=== PATIENT | female | born 1945 | race African-American/Black ===

== ENCOUNTER → 2016-09-28 | Outpatient (CLI) | payer OTHER ==
[~2016-09-28] MED LIST: (NONE)500 MCG PO; ASCORBIC ACID500 M2 PO; ASPIRIN81 M1 PO; BENICAR PO; CALTRATE 600+D PO; COD LIVER OIL1 CA1 PO; COVERA HS PO; GARLIC1000 MG PO; KCL PO; LIPITOR40 MG PO; LODINE400 M1 PO; QUINAPRIL-HCTZ1 TA1 PO; VERAPAMIL ER300 MG PO; VITAMIN D1000 UNI1 PO; VITAMIN E200 UNI1 PO; VYTORIN 10/20 T1 TAB PO
--- NOTE | ~2016-09-28 | MY11 ---
[facility] A Service of [facility] RADIOLOGY TEXT RESULTS PATIENT: ORA ARCHIBALD LOCATION: [facility] : 43 UNIT #: [id number] AGE: [address]: Marcelo Cruz MD SEX: F ORDER DR: [id number] [facility] [address] [place], [place] [address] [id number] O MR#: [id number] Acc #: [id number] NAME: ORA ARCHIBALD. : 1945 SEX: F STUDY DATE/TIME: 09/28/2016 11:21 UNIT: [facility] ROOM: STUDY DESCRIPTION: MY Mammogram Screening Dig Kenny Attending Physician: Marcelo Cruz M.D. Referring Physician: Marcelo Cruz M.D. Ordering Physician: Marcelo Cruz M.D. Primary Care Physician: Marcelo Cruz M.D. MEDICAL IMAGING REPORT This report is preliminary unless electronic signature is present EXAM Bilateral Digital Screening Mammogram with CAD INDICATION Breast cancer screening. 71-year-old asymptomatic female with a history of left breast cancer treated with lumpectomy in 2001. COMPARISON September 25, 2015; September 17, 2014; August 24, 2013; August 22, 2012; August 20, 2011; August 18, 2010 and August 14, 2009. FINDINGS There are scattered fibroglandular tissues. No suspicious findings are present. IMPRESSION No mammographic evidence of malignancy. Annual screening mammography and clinical breast exam are recommended. A result letter will be sent to the patient. Patients over the age of 40 are entered into a reminder system with target due date for the next mammogram. BIRADS: 1 Negative Dictated by... Daryl Kim M.D. THIS IS AN ELECTRONICALLY VERIFIED REPORT Daryl Kim M.D. at 09/28/2016 8:[address] [facility] A [facility] of [facility] RADIOLOGY TEXT RESULTS PATIENT: ORA ARCHIBALD [id number] : 43 UNIT #: [id number] AGE: [address]: Marcelo Cruz MD SEX: F ORDER DR: TD: 09/28/2016 15:46 JOB #: [id number] MEDICAL IMAGING REPORT COPY
== END | disposition home or self-care (01) ==
LOC: CWCC 10:57
DX: Z12.31 Encounter for screening mammogram for malignant neoplasm of breast (principal); Z80.3 Family history of malignant neoplasm of breast
CPT/HCPCS: G0202

== ENCOUNTER → 2016-12-14 | Outpatient (CLI) | payer OTHER ==
--- NOTE | ~2016-12-14 | MR165 ---
[facility] A Service of [facility] RADIOLOGY TEXT RESULTS PATIENT: ORA ARCHIBALD LOCATION: [facility] : 43 UNIT #: [id number] AGE: [address]: Farhan Avina MD SEX: F ORDER DR: [id number] [facility] [address] [place], [place] [address] [id number] O MR#: [id number] Acc #: [id number] NAME: ORA ARCHIBALD. : 1945 SEX: F STUDY DATE/TIME: 12/14/2016 10:08 UNIT: [facility] ROOM: STUDY DESCRIPTION: MR Shoulder Wo Contrast Rt Attending Physician: Farhan Avina M.D. Ordering Physician: Farhan Avina M.D. Primary Care Physician: Marcelo Cruz M.D. MRI CENTER REPORT This report is preliminary unless electronic signature is present. EXAM MRI of the right shoulder without contrast HISTORY Right shoulder pain for 5-6 years, reached across to get seatbelt, felt a pop, hurting ever since. FINDINGS Multiplanar, multiecho imaging was performed of the right shoulder utilizing a high-field magnet and dedicated protocol. There is mild AC joint arthropathy with a small amount of distal clavicular edema and periarticular edema, suggesting an active inflammatory component. Marrow signal within the proximal humerus and glenoid appears normal. Joint fluid within normal limits. There is mild supraspinatus tendinopathy with suspected partial articular-sided tear near the anterior distal footplate of the supraspinatus. This measures about 7 mm in greatest dimension. There is also mild infraspinatus tendinopathy, particularly at the distal insertion. There is some associated subacromial-subdeltoid bursitis. Teres minor and subscapularis tendons appear intact. No muscle atrophy or edema. Degeneration of the superior labrum, but no discernible tear. The biceps anchor and long tendon of the biceps appears intact. Anterior and posterior labrum unremarkable. Extraarticular soft tissues appear normal. IMPRESSION 1. Mild insertional and pre-insertional supraspinatus and infraspinatus tendinopathy with a 7 mm partial-thickness articular-sided tear footplate insertion, supraspinatus tendon. 2. 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 [facility]. [facility] A Service of [facility] RADIOLOGY TEXT RESULTS PATIENT: ORA ARCHIBALD LOCATION: [facility] : 43 UNIT #: [id number] AGE: [address]: Farhan Avina MD SEX: F ORDER DR: Dictated by... Fallon Carolina M.D. THIS IS AN ELECTRONICALLY VERIFIED REPORT Fallon Carolina M.D. at 12/16/2016 8:38 AM AIDE/ysabel TD: 12/14/2016 22:15 JOB #: [id number] MRI CENTER REPORT Page 1 of 1 COPY
== END | disposition home or self-care (01) ==
LOC: CMRI 08:49
DX: M25.511 Pain in right shoulder (principal); M75.51 Bursitis of right shoulder; M62.81 Muscle weakness (generalized); M75.111 Incomplete rotator cuff tear or rupture of right shoulder, not specified as traumatic; M12.811 Other specific arthropathies, not elsewhere classified, right shoulder; M75.81 Other shoulder lesions, right shoulder
CPT/HCPCS: 73221